=== PATIENT | female | born 1970 | race Caucasian/White ===

== ENCOUNTER 2018-12-21 11:06 | Emergency (ER) | payer SELFPAY ==
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
[2018-12-21 13:19] LABS: BLOOD UREA NITROGEN,BUN 15 mg/dL (7.0-18.0); CARBON DIOXIDE,CO2 23.7 mmol/L (21.0-32.0); CHLORIDE,CL 108 mmol/L (98-107); GLUCOSE RANDOM 97 mg/dL (74-106); SODIUM,NA 143 mmol/L (136-145)
== END 2018-12-21 13:25 | disposition home or self-care (01) ==
LOC: MW.ED 11:06
DX: Z13.89 Encounter for screening for other disorder (principal); Z20.2 Contact with and (suspected) exposure to infections with a predominantly sexual mode of transmission; F17.210 Nicotine dependence, cigarettes, uncomplicated
CPT/HCPCS: 36415; 80053; 81003; 85025; 87491; 87591; 99283

== ENCOUNTER 2019-01-11 12:52 | Emergency (ER) | payer SELFPAY ==
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
== END 2019-01-11 13:49 | disposition home or self-care (01) ==
LOC: MW.ED 12:52
DX: Z76.0 Encounter for issue of repeat prescription (principal); F41.9 Anxiety disorder, unspecified; Z79.899 Other long term (current) drug therapy
CPT/HCPCS: 99281; 99282

== ENCOUNTER 2019-01-26 17:53 | Emergency (ER) | payer SELFPAY ==
--- NOTE | 2019-01-26 18:35 | EDM.PDOC ---
ED HPI GENERAL MEDICAL PROBLEM - General Chief Complaint: Medication Administration Stated Complaint: OUT OF MEDS Time Seen by Provider: 01/26/19 18:35 Source of Information: Reports: Patient - History of Present Illness INITIAL COMMENTS - FREE TEXT/NARRATIVE: HISTORY AND PHYSICAL: History of present illness: [Presents for refill of her chronic medications gabapentin 800 mg 3 times daily no fever nausea vomiting chills sweats no chest pain shortness breath headache dizziness palpitation no bowel or urine symptoms] Review of systems: As per history of present illness and below otherwise all systems reviewed and negative. Past medical history: As per history of present illness and as reviewed below otherwise noncontributory. Surgical history: As per history of present illness and as reviewed below otherwise noncontributory. Social history: No reported history of drug or alcohol abuse. Family history: As per history of present illness and as reviewed below otherwise noncontributory. Physical exam: HEENT: Atraumatic, normocephalic, pupils reactive, negative for conjunctival pallor or scleral icterus, mucous membranes moist, throat clear, neck supple, nontender, trachea midline. Lungs: Clear to auscultation, breath sounds equal bilaterally, chest nontender. Heart: S1S2, regular, negative for clicks, rubs, or JVD. Abdomen: Soft, nondistended, nontender. Negative for masses or hepatosplenomegaly. Negative for costovertebral tenderness. Pelvis: Stable nontender. Genitourinary: Deferred. Rectal: Deferred. Extremities: Atraumatic, negative for cords or calf pain. Neurovascular unremarkable. Neuro: Awake, alert, oriented. Cranial nerves II through XII unremarkable. Cerebellum unremarkable. Motor and sensory unremarkable throughout. Exam nonfocal. Diagnostics: [] Therapeutics: [Gabapentin 800 mg #30] Impression: medication refill Medical screening ] Definitive disposition and diagnosis as appropriate pending reevaluation and review of above. - Related Data Allergies Allergy/AdvReac Type Severity Reaction Status Date / Time No Known Allergies Allergy Verified 01/26/19 18:23 Home Meds: Home Meds Gabapentin [Neurontin] 800 mg PO TID 12/21/18 [History] Past Medical History Genitourinary History: Reports: None [employer] History: Reports: Psychiatric History: Reports: Anxiety, PTSD - Infectious Disease History Infectious Disease History: Reports: None - Past Surgical History Female Surgical History: Reports: Section Social & Family History - Family History Family Medical History: Noncontributory - Tobacco Use Smoking Status *Q: Current Every Day Smoker Years of Tobacco use: 13 Packs/Tins Daily: 0.2 - Caffeine Use Caffeine Use: Reports: Coffee - Recreational Drug Use Recreational Drug Use: No ED ROS GENERAL - Review of Systems Review Of Systems: See Below ED EXAM, GENERAL - Physical Exam Exam: See Below Course - Vital Signs Last Recorded V/S: Last Vital Signs Temp 97.3 F 01/26/19 18:29 Pulse 78 01/26/19 18:29 Resp 17 01/26/19 18:29 BP 141/90 H 01/26/19 18:29 Pulse Ox 97 01/26/19 18:29 Departure - Departure Time of Disposition: 18:36 Disposition: Home, Self-Care 01 Condition: Good Clinical Impression: Medication refill - Discharge Information Referrals: PCP,Not In Area [Primary Care Provider] - Forms: ED Department Discharge Additional Instructions: The following information is given to patients seen in the emergency department who are being discharged to home. This information is to outline your options for follow-up care. We provide all patients seen in our emergency department with a follow-up referral. The need for follow-up, as well as the timing and circumstances, are variable depending upon the specifics of your emergency department visit. If you don't have a primary care physician on staff, we will provide you with a referral. We always advise you to contact your personal physician following an emergency department visit to inform them of the circumstance of the visit and for follow-up with them and/or the need for any referrals to a consulting specialist. The emergency department will also refer you to a specialist when appropriate. This referral assures that you have the opportunity for follow-up care with a specialist. All of these measure are taken in an effort to provide you with optimal care, which includes your follow-up. Under all circumstances we always encourage you to contact your private physician who remains a resource for coordinating your care. When calling for follow-up care, please make the office aware that this follow-up is from your recent emergency room visit. If for any reason you are refused follow-up, please contact the [facility] emergency department at and asked to speak to the emergency department charge nurse. Sepsis Event Note - Evaluation Sepsis Screening Result: No Definite Risk - Focused Exam Vital Signs: Vital Signs Temp Pulse Resp BP Pulse Ox 01/26/19 18:29 97.3 F 78 17 141/90 H 97 Date Exam was Performed: 01/26/19 Time Exam was Performed: 18:35
== END 2019-01-26 18:46 | disposition home or self-care (01) ==
LOC: MW.ED 17:53
DX: Z76.0 Encounter for issue of repeat prescription (principal); F17.210 Nicotine dependence, cigarettes, uncomplicated
CPT/HCPCS: 99281

== ENCOUNTER 2019-03-29 17:57 | Emergency (ER) | payer MEDICAID ==
--- NOTE | 2019-03-29 18:24 | EDM.PDOC ---
ED HPI GENERAL MEDICAL PROBLEM - General Chief Complaint: Respiratory Problem Stated Complaint: FLU SYMPTOMS/BODY ACHE Time Seen by Provider: 03/29/19 18:05 Source of Information: Reports: Patient History Limitations: Reports: No Limitations - History of Present Illness INITIAL COMMENTS - FREE TEXT/NARRATIVE: HISTORY AND PHYSICAL: History of present illness: Patient is a 48-year-old female who presents to the ED today with concern of generalized body aches, nasal congestion/runny nose, cough, and sore throat over the past 4 days. Patient states she is at the [facility] and many of the other women there have had diagnosis of influenza. Patient states that she feels her symptoms are typical of those around her at the [facility]. Patient states she does smoke cigarettes but denies any health history. Patient states she has not been able to smoke due to the onset of symptoms and worsening of cough. She states she is currently on her menstrual cycle. Patient denies fever, chills, chest pain, shortness of breath. Denies headache, neck stiff ness, change in vision, syncope, or near syncope. Denies nausea, vomiting, abdominal pain, diarrhea, constipation, or dysuria. Has not noted any blood in urine or stool. Patient has been eating and drinking appropriately. Review of systems: As per history of present illness and below otherwise all systems reviewed and negative. Past medical history: As per history of present illness and as reviewed below otherwise noncontributory. Surgical history: As per history of present illness and as reviewed below otherwise noncontributory. Social history: See social history for further information Family history: As per history of present illness and as reviewed below otherwise noncontributory. Physical exam: General: Patient is alert, oriented, and in no acute distress. Patient sitting comfortably on exam table. HEENT: Atraumatic, normocephalic, pupils equal and reactive bilaterally, negative for conjunctival pallor or scleral icterus, mucous membranes moist, TMs normal bilaterally, throat clear, neck supple, nontender, trachea midline. No drooling or trismus noted. No meningeal signs. No hot potato voice noted. Lungs: Clear to auscultation, breath sounds equal bilaterally, chest nontender. Heart: S1S2, regular rate and rhythm without overt murmur Abdomen: Soft, nondistended, nontender. Negative for masses or hepatosplenomegaly. Negative for costovertebral tenderness. Pelvis: Stable nontender. Genitourinary: Deferred. Rectal: Deferred. Skin: Intact, warm, dry. No lesions or rashes noted. Extremities: Atraumatic, negative for cords or calf pain. Neurovascular unremarkable. Neuro: Awake, alert, oriented. Cranial nerves II through XII unremarkable. Cerebellum unremarkable. Motor and sensory unremarkable throughout. Exam nonfocal. Notes: Upon arrival to the ED, patient was mildly anxious appearing but this did resolve quickly after initiation of diagnostics without therapeutics. Currently menstruating. Patient is out of the window of treatment with Tamiflu. Discussed importance for follow-up with a primary care provider and the need to have lab work/LFTs repeated and further evaluated. Voices understanding and is agreeable to plan of care. Denies any further questions or concerns at this time. Diagnostics: Influenza, Strep, CBC, CMP, UA, EKG, CXR, serum hcg, lactate, UDS Therapeutics: Toradol Prescription: Azithromycin, Proair inhaler Impression: Influenza A Lung infiltrate Transaminitis Plan: 1. Take standard infectious contact precautions as discussed. Take medication as prescribed. 2. Supportive care measures such as Tylenol and/or ibuprofen as directed for pain and fever management. Encourage small frequent sips of fluids to prevent dehydration. 3. Follow-up with your primary care provider as discussed and need to have liver function tests further evaluated. Return to the ED as needed and as discussed. Definitive disposition and diagnosis as appropriate pending reevaluation and review of above. 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 ED EXAM, GENERAL - Physical Exam Exam: See Below (see dictation) Course - Vital Signs Last Recorded V/S: Last Vital Signs Temp 97.8 F 03/29/19 18:09 Pulse 95 03/29/19 19:00 Resp 16 03/29/19 19:00 BP 132/80 03/29/19 18:09 Pulse Ox 95 03/29/19 19:00 - Orders/Labs/Meds Orders: Active Orders 24 hr Category Date Time Status EKG Documentation Completion [RC] STAT Care 03/29/19 18:20 Active CULTURE STREP A CONFIRMATION [RM] Stat Lab 03/29/19 18:13 Results DRUG SCREEN, URINE [URCHEM] Stat Lab 03/29/19 20:00 Ordered STREP SCRN A RAPID W CULT CONF [RM] Stat Lab 03/29/19 18:13 Results Labs: Laboratory Tests 03/29/19 03/29/19 03/29/19 Range/Units 18:41 18:41 18:41 WBC 3.93 L (4.0-11.0) K/uL RBC 4.30 (4.30-5.90) M/uL Hgb 12.6 (12.0-16.0) g/dL Hct 38.3 (36.0-46.0) % MCV 89.1 (80.0-98.0) fL MCH 29.3 (27.0-32.0) pg MCHC 32.9 (31.0-37.0) g/dL RDW Std Deviation 46.1 (28.0-62.0) fl RDW Coeff of Anderson 14 (11.0-15.0) % Plt Count 232 (150-400) K/uL MPV 10.10 (7.40-12.00) fL Neut % (Auto) 69.2 (48.0-80.0) % Lymph % (Auto) 13.5 L (16.0-40.0) % [place] % (Auto) 16.0 H (0.0-15.0) % Eos % (Auto) 1.0 (0.0-7.0) % Baso % (Auto) 0.3 (0.0-1.5) % Neut # (Auto) 2.7 (1.4-5.7) K/uL Lymph # (Auto) 0.5 L (0.6-2.4) K/uL [place] # (Auto) 0.6 (0.0-0.8) K/uL Eos # (Auto) 0.0 (0.0-0.7) K/uL Baso # (Auto) 0.0 (0.0-0.1) K/uL Nucleated RBC % 0.0 /100WBC Nucleated RBCs # 0 K/uL Lactate (0.20-2.00) mmol/L Sodium 137 (136-145) mmol/L Potassium 3.6 (3.5-5.1) mmol/L Chloride 104 (98-107) mmol/L Carbon Dioxide 22.4 (21.0-32.0) mmol/L BUN 12 (7.0-18.0) mg/dL Creatinine 0.7 (0.6-1.0) mg/dL Est Cr Clr Drug Dosing 71.36 mL/min Estimated GFR (MDRD) > 60.0 ml/min Glucose 128 H (74-106) mg/dL Calcium 8.1 L (8.5-10.1) mg/dL Total Bilirubin 0.3 (0.2-1.0) mg/dL AST 50 H (15-37) IU/L ALT 111 H (14-63) IU/L Alkaline Phosphatase 86 (46-116) U/L Total Protein 7.0 (6.4-8.2) g/dL Albumin 3.5 (3.4-5.0) g/dL Globulin 3.5 (2.6-4.0) g/dL Albumin/Globulin Ratio 1.0 (0.9-1.6) HCG, Qual NEGATIVE (NEG) Urine Color Urine Appearance Urine pH (5.0-8.0) Ur Specific [place] (1.001-1.035) Urine Protein (NEGATIVE) mg/dL Urine Glucose (UA) (NEGATIVE) mg/dL Urine Ketones (NEGATIVE) mg/dL Urine Occult Blood (NEGATIVE) Urine Nitrite (NEGATIVE) Urine Bilirubin (NEGATIVE) Urine Urobilinogen (<2.0) EU/dL Ur Leukocyte Esterase (NEGATIVE) Urine RBC (0-2/HPF) Urine WBC (0-5/HPF) Ur Epithelial Cells (NONE-FEW) Urine Bacteria (NEGATIVE) Urine Mucus (NONE-MOD) 03/29/19 03/29/19 Range/Units 18:45 20:04 WBC (4.0-11.0) K/uL RBC (4.30-5.90) M/uL Hgb (12.0-16.0) g/dL Hct (36.0-46.0) % MCV (80.0-98.0) fL MCH (27.0-32.0) pg MCHC (31.0-37.0) g/dL RDW Std Deviation (28.0-62.0) fl RDW Coeff of Anderson (11.0-15.0) % Plt Count (150-400) K/uL MPV (7.40-12.00) fL Neut % (Auto) (48.0-80.0) % Lymph % (Auto) (16.0-40.0) % [place] % (Auto) (0.0-15.0) % Eos % (Auto) (0.0-7.0) % Baso % (Auto) (0.0-1.5) % Neut # (Auto) (1.4-5.7) K/uL Lymph # (Auto) (0.6-2.4) K/uL [place] # (Auto) (0.0-0.8) K/uL Eos # (Auto) (0.0-0.7) K/uL Baso # (Auto) (0.0-0.1) K/uL Nucleated RBC % /100WBC Nucleated RBCs # K/uL Lactate 0.7 (0.20-2.00) mmol/L Sodium (136-145) mmol/L Potassium (3.5-5.1) mmol/L Chloride (98-107) mmol/L Carbon Dioxide (21.0-32.0) mmol/L BUN (7.0-18.0) mg/dL Creatinine (0.6-1.0) mg/dL Est Cr Clr Drug Dosing mL/min Estimated GFR (MDRD) ml/min Glucose (74-106) mg/dL Calcium (8.5-10.1) mg/dL Total Bilirubin (0.2-1.0) mg/dL AST (15-37) IU/L ALT (14-63) IU/L Alkaline Phosphatase (46-116) U/L Total Protein (6.4-8.2) g/dL Albumin (3.4-5.0) g/dL Globulin (2.6-4.0) g/dL Albumin/Globulin Ratio (0.9-1.6) HCG, Qual (NEG) Urine Color YELLOW Urine Appearance HAZY Urine pH 5.5 (5.0-8.0) Ur Specific [place] >= 1.030 (1.001-1.035) Urine Protein 30 H (NEGATIVE) mg/dL Urine Glucose (UA) NEGATIVE (NEGATIVE) mg/dL Urine Ketones NEGATIVE (NEGATIVE) mg/dL Urine Occult Blood MODERATE H (NEGATIVE) Urine Nitrite NEGATIVE (NEGATIVE) Urine Bilirubin NEGATIVE (NEGATIVE) Urine Urobilinogen 0.2 (<2.0) EU/dL Ur Leukocyte Esterase NEGATIVE (NEGATIVE) Urine RBC 4-8 (0-2/HPF) Urine WBC 0-3 (0-5/HPF) Ur Epithelial Cells FEW (NONE-FEW) Urine Bacteria FEW (NEGATIVE) Urine Mucus MODERATE (NONE-MOD) Meds: Medications Discontinued Medications Generic Name Dose Route Start Last Admin Trade Name Freq PRN Reason Stop Dose Admin Ketorolac Tromethamine 30 mg 03/29/19 19:28 03/29/19 19:47 Toradol IM 03/29/19 19:29 30 mg ONETIME ONE Administration Departure - Departure Time of Disposition: 20:24 Disposition: Home, Self-Care 01 Clinical Impression: Influenza A, Transaminitis, Lung infiltrate - Discharge Information Instructions: Influenza, Adult, [id number] Referrals: PCP,None [Primary Care Provider] - Forms: ED Department Discharge Additional Instructions: The following information is given to patients seen in the emergency department who are being discharged to home. This information is to outline your options for follow-up care. We provide all patients seen in our emergency department with a follow-up referral. The need for follow-up, as well as the timing and circumstances, are variable depending upon the specifics of your emergency department visit. If you don't have a primary care physician on staff, we will provide you with a referral. We always advise you to contact your personal physician following an emergency department visit to inform them of the circumstance of the visit and for follow-up with them and/or the need for any referrals to a consulting specialist. The emergency department will also refer you to a specialist when appropriate. This referral assures that you have the opportunity for follow-up care with a specialist. All of these measure are taken in an effort to provide you with optimal care, which includes your follow-up. Under all circumstances we always encourage you to contact your private physician who remains a resource for coordinating your care. When calling for follow-up care, please make the office aware that this follow-up is from your recent emergency room visit. If for any reason you are refused follow-up, please contact the [facility] Emergency Department at and asked to speak to the emergency department charge nurse. [facility] [address] [place] [address] [facility] [address] [place] [id number] 1. Take standard infectious contact precautions as discussed. Take medication as prescribed. 2. Supportive care measures such as Tylenol and/or ibuprofen as directed for pain and fever management. Encourage small frequent sips of fluids to prevent dehydration. 3. Follow-up with your primary care provider as discussed and need to have liver function tests further evaluated. Return to the ED as needed and as discussed. Sepsis Event Note - Evaluation Sepsis Screening Result: Possible Sepsis Risk - Focused Exam Vital Signs: Vital Signs Temp Pulse Resp BP Pulse Ox 03/29/19 19:00 95 16 95 03/29/19 18:09 97.8 F 108 H 22 H 132/80 95 Date Exam was Performed: 03/29/19 Time Exam was Performed: 20:22 - My Orders Last 24 Hours: My Active Orders 03/29/19 18:13 CULTURE STREP A CONFIRMATION [RM] Stat STREP SCRN A RAPID W CULT CONF [RM] Stat 03/29/19 18:20 EKG Documentation Completion [RC] STAT 03/29/19 20:00 DRUG SCREEN, URINE [URCHEM] Stat - Assessment/Plan Last 24 Hours: My Active Orders 03/29/19 18:13 CULTURE STREP A CONFIRMATION [RM] Stat STREP SCRN A RAPID W CULT CONF [RM] Stat 03/29/19 18:20 EKG Documentation Completion [RC] STAT 03/29/19 20:00 DRUG SCREEN, URINE [URCHEM] Stat
[2019-03-29 19:11] LABS: BLOOD UREA NITROGEN,BUN 12 mg/dL (7.0-18.0); CARBON DIOXIDE,CO2 22.4 mmol/L (21.0-32.0); CHLORIDE,CL 104 mmol/L (98-107); GLUCOSE RANDOM 128 mg/dL (74-106); POTASSIUM,K 3.6 mmol/L (3.5-5.1); SODIUM,NA 137 mmol/L (136-145)
[2019-03-29] MEDS ORDERED: Ketorolac 30 MG/ML SDV IM ONE (19:28)
--- NOTE | 2019-03-29 20:09 | CR ---
INDICATION: Four-day history of cough TECHNIQUE: Chest 2 views. COMPARISON: None FINDINGS: Cardiovascular and mediastinum: Heart size and vasculature are normal in caliber and appearance. Mediastinum is within normal limits. Lungs and pleural spaces: Patchy opacity in the right lower. No sign of pleural effusion. No pneumothorax. Bones and soft tissues: No significant findings. IMPRESSION: Patchy opacity in the right lower lobe may represent atelectasis or infection. Dictated by Germania Vinson MD @ Mar 29 2019 8:07PM Signed by Dr. Germania Vinson @ Mar 29 2019 8:07PM
== END 2019-03-29 20:40 | disposition home or self-care (01) ==
LOC: MW.ED 17:57
DX: J10.1 Influenza due to other identified influenza virus with other respiratory manifestations (principal); R91.8 Other nonspecific abnormal finding of lung field; R74.0 Nonspecific elevation of levels of transaminase and lactic acid dehydrogenase [LDH]; F17.210 Nicotine dependence, cigarettes, uncomplicated
CPT/HCPCS: 36415; 71046; 80053; 80305; 81001; 83605; 84703; 85025; 87081; 87804; 87880; 93005; 96372; 99284; J1885

== ENCOUNTER 2019-04-21 00:36 | Emergency (ER) | payer MEDICAID ==
[2019-04-21] MEDS ORDERED: Sodium Chloride 0.9% 10 ML Syringe FLUSH PRN (00:43)
[2019-04-21] MEDS ORDERED: Ketorolac 30 MG/ML SDV IVPUSH ONE (00:43)
[2019-04-21] MEDS ORDERED: Ondansetron 4 MG/2 ML SDV IVPUSH ONE (00:43)
[2019-04-21] MEDS ORDERED: Sodium Chloride 0.9% 2.5 ML Syringe FLUSH PRN (00:43)
[2019-04-21] MEDS ORDERED: Dicyclomine 10 MG Cap PO ONE (00:44)
--- NOTE | 2019-04-21 00:48 | EDM.PDOC ---
ED HPI GENERAL MEDICAL PROBLEM - General Chief Complaint: Abdominal Pain Stated Complaint: ABDOMINAL PAIN Time Seen by Provider: 04/21/19 00:45 Source of Information: Reports: Patient - History of Present Illness INITIAL COMMENTS - FREE TEXT/NARRATIVE: 48-year-old female who presents to the ER secondary to abdominal pain. She states that this started about an hour ago, and it wraps around her entire upper abdomen and back like a band. She also has had some nausea and vomiting. No fevers or chills. No difficulty breathing, no other acute complaints. The patient is not sure if she has had this before. She states that there was one time where she was throwing up a lot and she was given some medications but she does not remember what it was for. She denies any alcohol use, she states that she had some [place] food approximately 12 hours ago but her last meal was just some green beans. Abdomen Pain Score (Numeric/FACES): 9 - Related Data Allergies Allergy/AdvReac Type Severity Reaction Status Date / Time No Known Allergies Allergy Verified 04/21/19 00:39 Home Meds: Home Meds Gabapentin [Neurontin] 800 mg PO TID 12/21/18 [History] Ondansetron [Zofran ODT] 4 mg PO Q4H PRN 5 Days #20 tab.dis 04/21/19 [Rx] Sucralfate [Carafate] 1 gm PO Q6HR 10 Days #40 tablet 04/21/19 [Rx] Past Medical History Genitourinary History: Reports: None [employer] History: Reports: Psychiatric History: Reports: Anxiety, PTSD - Infectious Disease History Infectious Disease History: Reports: None - Past Surgical History Female Surgical History: Reports: Section Social & Family History - Family History Family Medical History: Noncontributory - Caffeine Use Caffeine Use: Reports: Coffee ED ROS GENERAL - Review of Systems Review Of Systems: See Below (Positive for abdominal pain, nausea and vomiting, negative for fevers, negative for diarrhea, all other Positives and pertinent negatives as per HPI. All other pertinent systems were reviewed and are negative ) ED EXAM, GI/ABD - Physical Exam Exam: See Below Text/Narrative:: Constitutional: Nontoxic, looks mildly uncomfortable HEENT.: Normocephalic, Atraumatic, PERRL, EOMI, External ears are atraumatic, nares are patent without epistaxis Neck: Normal range of motion, Trachea Midline, No stridor Respiratory.: No respiratory distress, No tachypnea, Lungs Clear to Auscultation bilaterally without wheezes, rales, or rhonchi Cardiovascular.: Regular rate and Rhythm without murmurs, rubs, or gallops, good peripheral perfusion GI: Obese, abdomen soft and nondistended, very reproducible right upper quadrant tenderness, no rebound Genital Urinary: Deferred Musculoskeletal: Good range of motion. All 4 extremities present and atraumatic , no edema Back: Full Range of Motion Skin: Warm, Dry, Color is ethnicity appropriate, No acute rash. Lymphatic: No lymphadenopathy noted Neurological: Alert, Awake and oriented x 3, No focal deficits noted appreciate , GCS 15 Psych: Affect, Judgement, mood normal Course - Vital Signs Text/Narrative:: Differential diagnosis includes appendicitis, ascending cholangitis, choledocholithiasis, pancreatitis, perforated ulcer, diverticulitis, volvulus, adult intussusception, others Lab work all returned and is unremarkable and as documented the patient has a nonsurgical abdomen. The patient can be heard out in the hallway loudly laughing with to have her friends and joking around. I went into the room and as she was laughing she stated that none of the medications I gave her helped with her pain. She has not vomited once here, and given the entire clinical scenario I do not think that the patient requires any imaging at this time, nor do I feel she needs opioid therapy. The patient states that this feels similar to previous episodes of gastritis that she has had in the past so she will be given a dose of Carafate in the ER and a prescription for Carafate and Zofran and is stable for discharge. Last Recorded V/S: Last Vital Signs Temp 36.6 C 04/21/19 03:40 Pulse 85 04/21/19 03:40 Resp 16 04/21/19 03:40 BP 135/83 04/21/19 03:40 Pulse Ox 96 04/21/19 03:40 - Orders/Labs/Meds Orders: Active Orders 24 hr Category Date Time Status Saline Lock Insert [OM.PC] Stat Oth 04/21/19 00:43 Ordered Labs: Laboratory Tests 04/21/19 04/21/19 04/21/19 Range/Units 01:06 01:06 01:06 WBC 11.05 H (4.0-11.0) K/uL RBC 4.66 (4.30-5.90) M/uL Hgb 13.3 (12.0-16.0) g/dL Hct 41.8 (36.0-46.0) % MCV 89.7 (80.0-98.0) fL MCH 28.5 (27.0-32.0) pg MCHC 31.8 (31.0-37.0) g/dL RDW Std Deviation 45.0 (28.0-62.0) fl RDW Coeff of Anderson 14 (11.0-15.0) % Plt Count 398 (150-400) K/uL MPV 10.10 (7.40-12.00) fL Neut % (Auto) 62.9 (48.0-80.0) % Lymph % (Auto) 26.7 (16.0-40.0) % [place] % (Auto) 7.4 (0.0-15.0) % Eos % (Auto) 2.6 (0.0-7.0) % Baso % (Auto) 0.4 (0.0-1.5) % Neut # (Auto) 7.0 H (1.4-5.7) K/uL Lymph # (Auto) 3.0 H (0.6-2.4) K/uL [place] # (Auto) 0.8 (0.0-0.8) K/uL Eos # (Auto) 0.3 (0.0-0.7) K/uL Baso # (Auto) 0.0 (0.0-0.1) K/uL Nucleated RBC % 0.0 /100WBC Nucleated RBCs # 0 K/uL Sodium 142 (136-145) mmol/L Potassium 3.7 (3.5-5.1) mmol/L Chloride 103 (98-107) mmol/L Carbon Dioxide 30.6 (21.0-32.0) mmol/L BUN 14 (7.0-18.0) mg/dL Creatinine 0.7 (0.6-1.0) mg/dL Est Cr Clr Drug Dosing TNP Estimated GFR (MDRD) > 60.0 ml/min Glucose 111 H (74-106) mg/dL Calcium 9.2 (8.5-10.1) mg/dL Total Bilirubin 0.3 (0.2-1.0) mg/dL AST 30 (15-37) IU/L ALT 48 (14-63) IU/L Alkaline Phosphatase 93 (46-116) U/L Total Protein 7.2 (6.4-8.2) g/dL Albumin 3.9 (3.4-5.0) g/dL Globulin 3.3 (2.6-4.0) g/dL Albumin/Globulin Ratio 1.2 (0.9-1.6) Lipase 250 (73-393) U/L HCG, Qual NEGATIVE (NEG) Ethyl Alcohol mg/dL 04/21/19 Range/Units 01:06 WBC (4.0-11.0) K/uL RBC (4.30-5.90) M/uL Hgb (12.0-16.0) g/dL Hct (36.0-46.0) % MCV (80.0-98.0) fL MCH (27.0-32.0) pg MCHC (31.0-37.0) g/dL RDW Std Deviation (28.0-62.0) fl RDW Coeff of [place] (11.0-15.0) % Plt Count (150-400) K/uL MPV (7.40-12.00) fL Neut % (Auto) (48.0-80.0) % Lymph % (Auto) (16.0-40.0) % [place] % (Auto) (0.0-15.0) % Eos % (Auto) (0.0-7.0) % Baso % (Auto) (0.0-1.5) % Neut # (Auto) (1.4-5.7) K/uL Lymph # (Auto) (0.6-2.4) K/uL [place] # (Auto) (0.0-0.8) K/uL Eos # (Auto) (0.0-0.7) K/uL Baso # (Auto) (0.0-0.1) K/uL Nucleated RBC % /100WBC Nucleated RBCs # K/uL Sodium (136-145) mmol/L Potassium (3.5-5.1) mmol/L Chloride (98-107) mmol/L Carbon Dioxide (21.0-32.0) mmol/L BUN (7.0-18.0) mg/dL Creatinine (0.6-1.0) mg/dL Est Cr Clr Drug Dosing Estimated GFR (MDRD) ml/min Glucose (74-106) mg/dL Calcium (8.5-10.1) mg/dL Total Bilirubin (0.2-1.0) mg/dL AST (15-37) IU/L ALT (14-63) IU/L Alkaline Phosphatase (46-116) U/L Total Protein (6.4-8.2) g/dL Albumin (3.4-5.0) g/dL Globulin (2.6-4.0) g/dL Albumin/Globulin Ratio (0.9-1.6) Lipase (73-393) U/L HCG, Qual (NEG) Ethyl Alcohol <3 mg/dL Meds: Medications Discontinued Medications Generic Name Dose Route Start Last Admin Trade Name Freq PRN Reason Stop Dose Admin Dicyclomine HCl 20 mg 04/21/19 00:44 04/21/19 01:12 Bentyl PO 04/21/19 00:45 20 mg ONETIME ONE Administration Ketorolac Tromethamine 30 mg 04/21/19 00:43 04/21/19 01:14 Toradol IVPUSH 04/21/19 00:44 30 mg ONETIME ONE Administration Ondansetron HCl 4 mg 04/21/19 00:43 04/21/19 01:12 Zofran IVPUSH 04/21/19 00:44 4 mg ONETIME ONE Administration Sodium Chloride 10 ml 04/21/19 00:43 Saline Flush FLUSH ASDIRECTED PRN Keep Vein Open Sodium Chloride 2.5 ml 04/21/19 00:43 Saline Flush FLUSH ASDIRECTED PRN Keep Vein Open Sucralfate 1 gm 04/21/19 03:18 04/21/19 03:43 Carafate PO 04/21/19 03:19 1 gm ONETIME ONE Administration Departure - Departure Time of Disposition: :20 Disposition: Home, Self-Care 01 Condition: Good Clinical Impression: Abdominal pain - Discharge Information *PRESCRIPTION DRUG MONITORING PROGRAM REVIEWED*: Not Applicable *COPY OF PRESCRIPTION DRUG MONITORING REPORT IN PATIENT LADONNA: Not Applicable Prescriptions: Sucralfate [Carafate] 1 gm PO Q6HR 10 Days #40 tablet Ondansetron [Zofran ODT] 4 mg PO Q4H PRN 5 Days #20 tab.dis PRN Reason: Nausea/Vomiting Instructions: Abdominal Pain, Adult, [id number] Referrals: PCP,None [Primary Care Provider] - Forms: ED Department Discharge Additional Instructions: The following information is given to patients seen in the emergency department who are being discharged to home. This information is to outline your options for follow-up care. We provide all patients seen in our emergency department with a follow-up referral. The need for follow-up, as well as the timing and circumstances, are variable depending upon the specifics of your emergency department visit. If you don't have a primary care physician on staff, we will provide you with a referral. We always advise you to contact your personal physician following an emergency department visit to inform them of the circumstance of the visit and for follow-up with them and/or the need for any referrals to a consulting specialist. The emergency department will also refer you to a specialist when appropriate. This referral assures that you have the opportunity for follow-up care with a specialist. All of these measure are taken in an effort to provide you with optimal care, which includes your follow-up. Under all circumstances we always encourage you to contact your private physician who remains a resource for coordinating your care. When calling for follow-up care, please make the office aware that this follow-up is from your recent emergency room visit. If for any reason you are refused follow-up, please contact the [facility] Emergency Department at and asked to speak to the emergency department charge nurse. [facility] [address] [place] [address] [id number] [address] [address] Sepsis Event Note - Evaluation Sepsis Screening Result: No Definite Risk - Focused Exam Vital Signs: Vital Signs Temp Pulse Resp BP Pulse Ox 04/21/19 03:40 36.6 C 85 16 135/83 96 04/21/19 00:39 35.8 C L 94 18 146/90 H 98 Date Exam was Performed: 04/21/19 Time Exam was Performed: 04:26 - My Orders Last 24 Hours: My Active Orders 04/21/19 00:43 Saline Lock Insert [OM.PC] Stat - Assessment/Plan Last 24 Hours: My Active Orders 04/21/19 00:43 Saline Lock Insert [OM.PC] Stat
[2019-04-21 01:34] LABS: BLOOD UREA NITROGEN,BUN 14 mg/dL (7.0-18.0); CARBON DIOXIDE,CO2 30.6 mmol/L (21.0-32.0); CHLORIDE,CL 103 mmol/L (98-107); GLUCOSE RANDOM 111 mg/dL (74-106); LIPASE 250 U/L (73-393); POTASSIUM,K 3.7 mmol/L (3.5-5.1); SODIUM,NA 142 mmol/L (136-145)
[2019-04-21] MEDS ORDERED: Sucralfate 1 GM Tab PO ONE (03:18)
== END 2019-04-21 03:50 | disposition home or self-care (01) ==
LOC: MW.ED 00:36
DX: R10.10 Upper abdominal pain, unspecified (principal); R11.2 Nausea with vomiting, unspecified; F41.9 Anxiety disorder, unspecified; Z79.899 Other long term (current) drug therapy
CPT/HCPCS: 36415; 80053; 80307; 83690; 84703; 85025; 96374; 96375; 99284; A9270; J1885; J2405

== ENCOUNTER 2019-07-24 18:27 | Emergency (ER) | payer MEDICAID ==
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
[2019-07-24] MEDS ORDERED: LORazepam 2 MG/ML SDV IVPUSH ONE (18:35)
[2019-07-24] MEDS ORDERED: Sodium Chloride 0.9% 1,000 ML IV ONE (18:35)
[2019-07-24 20:03] LABS: BLOOD UREA NITROGEN,BUN 14 mg/dL (7.0-18.0); CARBON DIOXIDE,CO2 27.8 mmol/L (21.0-32.0); CHLORIDE,CL 102 mmol/L (98-107); GLUCOSE RANDOM 136 mg/dL (74-106); POTASSIUM,K 3.9 mmol/L (3.5-5.1); SODIUM,NA 139 mmol/L (136-145)
== END 2019-07-24 20:24 | disposition home or self-care (01) ==
LOC: MW.ED 18:27
DX: R11.2 Nausea with vomiting, unspecified (principal); R19.7 Diarrhea, unspecified; T40.4X5A Adverse effect of other synthetic narcotics, initial encounter
CPT/HCPCS: 36415; 80048; 85025; 96361; 96374; 99284; J2060; J7030; 99283

== ENCOUNTER 2019-07-25 19:42 | Emergency (ER) | payer MEDICAID ==
[2019-07-25] MEDS ORDERED: Famotidine 20 MG Tab PO ONE (20:06)
[2019-07-25] MEDS ORDERED: diphenhydrAMINE 50 MG/ML SDV IM ONE (20:06)
[2019-07-25] MEDS ORDERED: Ondansetron 4 MG Tab.DIS PO ONE (20:06)
[2019-07-25] MEDS ORDERED: LORazepam 2 MG/ML SDV IM ONE (20:06)
[2019-07-25 20:39] LABS: BLOOD UREA NITROGEN,BUN 9 mg/dL (7.0-18.0); CARBON DIOXIDE,CO2 25.6 mmol/L (21.0-32.0); CHLORIDE,CL 103 mmol/L (98-107); GLUCOSE RANDOM 107 mg/dL (74-106); LIPASE 149 U/L (73-393); SODIUM,NA 139 mmol/L (136-145)
--- NOTE | 2019-07-25 21:14 | EDM.PDOC ---
ED HPI GENERAL MEDICAL PROBLEM - General Chief Complaint: Abdominal Pain Stated Complaint: EMS ARRIVAL Time Seen by Provider: 07/25/19 19:49 Source of Information: Reports: Patient History Limitations: Reports: No Limitations - History of Present Illness INITIAL COMMENTS - FREE TEXT/NARRATIVE: History of present illness: [Patient is 49-year-old female with a history of methamphetamine use and Suboxone use who presents with acute on chronic abdominal pain. She was seen here yesterday for similar complaint. Lab work at that time was largely unremarkable. Feels nauseated but denies vomiting. Denies diarrhea. Denies fever. No known exacerbating or alleviating symptoms at this time. She believes it might be related to the Keflex she was taking for a skin infection.] Review of systems: As per history of present illness and below otherwise all systems reviewed and negative. Past medical history: As per history of present illness and as reviewed below otherwise noncontributory. Surgical history: As per history of present illness and as reviewed below otherwise noncontributory. Social history: No reported history of drug or alcohol abuse. Family history: As per history of present illness and as reviewed below otherwise noncontributory. Physical exam: General: Awake, alert, mild distress, A&O X3. HEENT: Atraumatic, normocephalic, pupils reactive, negative for conjunctival pallor or scleral icterus, mucous membranes moist, throat clear, neck supple, nontender, trachea midline. Lungs: Clear to auscultation, breath sounds equal bilaterally, chest nontender. Heart: RRR, normal S1S2, no JVD. Abdomen: Soft, nondistended, nontender. Negative for masses or hepatosplenomegaly. Pelvis: Stable nontender. Genitourinary: Deferred. Rectal: Deferred. Extremities: Atraumatic, no edema, Neurovascular unremarkable. Neuro: Motor and sensory grossly intact throughout. Exam nonfocal. Diagnostics: [] Therapeutics: [] Impression: [] Plan: [] Definitive disposition and diagnosis as appropriate pending reevaluation and review of above. Middle Abdominal Pain Score (Numeric/FACES): 10 - Related Data Allergies Allergy/AdvReac Type Severity Reaction Status Date / Time No Known Allergies Allergy Verified 07/24/19 19:07 Home Meds: Home Meds Buprenorphine HCl/Naloxone HCl [Suboxone 4 mg-1 mg Sl Film] 07/24/19 [History] ClonazePAM [KlonoPIN] 0.5 mg PO BID PRN 07/24/19 [History] Gabapentin [Neurontin] 300 mg PO TID 07/24/19 [History] cephALEXin [Keflex] 250 mg PO Q8H 07/24/19 [History] Gabapentin [Neurontin] 07/25/19 [History] Past Medical History HEENT History: Reports: None Cardiovascular History: Reports: None Respiratory History: Reports: None Gastrointestinal History: Reports: None Genitourinary History: Reports: None 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: Musculoskeletal History: Reports: None Neurological History: Reports: None Psychiatric History: Reports: Anxiety, PTSD Endocrine/Metabolic History: Reports: None Insulin Pump Model 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 ED EXAM, GI/ABD - Physical Exam Exam: See Below (see h and p) Course - Vital Signs Text/Narrative:: Patient is a challenging IV, we are able to get some blood, but no IV established. She received IM and oral medications on reevaluation she was resting comfortably, sleeping. Repeat belly exam is benign. Her work-up yesterday was reassuring. I do believe advanced imaging or further work-up is needed at this time. No evidence for an acute surgical belly on my exam and she is currently not experiencing pain, showed significant clinical improvement throughout her emergency department stay. Return precautions provided otherwise she was well-appearing and stable at the time of discharge. Last Recorded V/S: Last Vital Signs Temp 36.6 C 07/25/19 19:56 Pulse 87 07/25/19 19:56 Resp 18 07/25/19 19:56 BP 116/67 07/25/19 19:56 Pulse Ox 93 L 07/25/19 19:56 - Orders/Labs/Meds Orders: Active Orders 24 hr Category Date Time Status CBC WITH AUTO DIFF [HEME] Stat Lab 07/25/19 20:05 Received Labs: Laboratory Tests 07/25/19 Range/Units 20:05 Sodium 139 (136-145) mmol/L Potassium 4.0 (3.5-5.1) mmol/L Chloride 103 (98-107) mmol/L Carbon Dioxide 25.6 (21.0-32.0) mmol/L BUN 9 (7.0-18.0) mg/dL Creatinine 0.6 (0.6-1.0) mg/dL Est Cr Clr Drug Dosing 82.36 mL/min Estimated GFR (MDRD) > 60.0 ml/min Glucose 107 H (74-106) mg/dL Calcium 8.4 L (8.5-10.1) mg/dL Total Bilirubin 0.2 (0.2-1.0) mg/dL AST 47 H (15-37) IU/L ALT 67 H (14-63) IU/L Alkaline Phosphatase 74 (46-116) U/L Total Protein 6.3 L (6.4-8.2) g/dL Albumin 3.4 (3.4-5.0) g/dL Globulin 2.9 (2.6-4.0) g/dL Albumin/Globulin Ratio 1.2 (0.9-1.6) Lipase 149 (73-393) U/L Meds: Medications Discontinued Medications Generic Name Dose Route Start Last Admin Trade Name Freq PRN Reason Stop Dose Admin Diphenhydramine HCl 50 mg 07/25/19 20:06 07/25/19 20:14 Benadryl IM 07/25/19 20:07 50 mg ONETIME ONE Administration Famotidine 20 mg 07/25/19 20:06 07/25/19 20:12 Pepcid PO 07/25/19 20:07 20 mg ONETIME ONE Administration Lorazepam 1 mg 07/25/19 20:06 07/25/19 20:14 Ativan IM 07/25/19 20:07 1 mg ONETIME ONE Administration Ondansetron HCl 4 mg 07/25/19 20:06 07/25/19 20:12 Zofran Odt PO 07/25/19 20:07 4 mg ONETIME ONE Administration Departure - Departure Time of Disposition: 21:14 Disposition: Home, Self-Care 01 Condition: Good Clinical Impression: Abdominal pain - Discharge Information Instructions: Abdominal Pain, Adult, [id number] Referrals: PCP,None [Primary Care Provider] - Additional Instructions: Follow-up with primary care doctor. Take medications as previously prescribed. Return to the ED with any new or worsening symptoms. The following information is given to patients seen in the emergency department who are being discharged to home. This information is to outline your options for follow-up care. We provide all patients seen in our emergency department with a follow-up referral. The need for follow-up, as well as the timing and circumstances, are variable depending upon the specifics of your emergency department visit. If you don't have a primary care physician on staff, we will provide you with a referral. We always advise you to contact your personal physician following an emergency department visit to inform them of the circumstance of the visit and for follow-up with them and/or the need for any referrals to a consulting specialist. The emergency department will also refer you to a specialist when appropriate. This referral assures that you have the opportunity for follow-up care with a specialist. All of these measure are taken in an effort to provide you with optimal care, which includes your follow-up. Under all circumstances we always encourage you to contact your private physician who remains a resource for coordinating your care. When calling for follow-up care, please make the office aware that this follow-up is from your recent emergency room visit. If for any reason you are refused follow-up, please contact the [facility] Emergency Department at and asked to speak to the emergency department charge nurse. Sepsis Event Note (ED) - Evaluation Sepsis Screening Result: No Definite Risk - Focused Exam Vital Signs: Vital Signs Temp Pulse Resp BP Pulse Ox 07/25/19 19:56 36.6 C 87 18 116/67 93 L - My Orders Last 24 Hours: My Active Orders 07/25/19 20:05 CBC WITH AUTO DIFF [HEME] Stat - Assessment/Plan Last 24 Hours: My Active Orders 07/25/19 20:05 CBC WITH AUTO DIFF [HEME] Stat
== END 2019-07-25 21:25 | disposition home or self-care (01) ==
LOC: MW.ED 19:42
DX: R10.9 Unspecified abdominal pain (principal); R11.0 Nausea; F41.9 Anxiety disorder, unspecified; F43.10 Post-traumatic stress disorder, unspecified; Z79.899 Other long term (current) drug therapy
CPT/HCPCS: 36415; 80053; 83690; 96372; 99284; A9270; J1200; J2060; 99282

== ENCOUNTER 2019-08-03 05:39 | Emergency (ER) | payer MEDICAID ==
[2019-08-03] MEDS ORDERED: Ondansetron 4 MG/2 ML SDV IVPUSH ONE (05:41)
[2019-08-03] MEDS ORDERED: Sodium Chloride 0.9% 10 ML Syringe FLUSH PRN (05:41)
[2019-08-03] MEDS ORDERED: Sodium Chloride 0.9% 1,000 ML IV ONE (05:41)
[2019-08-03] MEDS ORDERED: Sodium Chloride 0.9% 2.5 ML Syringe FLUSH PRN ×2 (05:41)
--- NOTE | 2019-08-03 05:48 | EDM.PDOC ---
ED HPI GENERAL MEDICAL PROBLEM - General Chief Complaint: Headache Stated Complaint: ABDOMNINAL PAIN Time Seen by Provider: 08/03/19 05:41 Source of Information: Reports: Patient, EMS History Limitations: Reports: No Limitations - History of Present Illness INITIAL COMMENTS - FREE TEXT/NARRATIVE: 49-year-old female presents with headache. She woke up yesterday from a nap complaining of gradual onset progressive worsening frontal throbbing headache that radiated to her occiput, associated with photophobia and phonophobia, nausea, myalgia, malaise. She denies fever, neck pain or neck stiffness or abdominal pain, CP, SOB, cough. She went to bed last night but woke up at 0330 this morning vomiting. She has a history of meth use, last use being more than a year ago. ROS: A 10-point review of systems, other than pertinent positives and negatives as stated per HPI, is otherwise negative PHYSICAL EXAM General: AOx4, GCS = 15, No distress HEENT: dry mucous membrane Neck: supple, no meningismus, no Kernig or Brudzinski Cardiac: S1S2 RRR Respiratory: CTAB, no crackles or rales, no wheezing Abdomen: Soft, nontender, no rebound or guarding, nondistended, no pulsatile mass. Back: nontender Musculoskeletal: NVI distally, no deformity Neuro: No focal deficits, CN 2 - 12 WNL. MEDICAL DECISION MAKING: I reviewed the patients past medical records, lab and radiographic findings. I discussed the case with family members. My differential diagnosis included: Migraine headache, tension headache, electrolyte abnormality Headache Pain Score (Numeric/FACES): 8 - Related Data Allergies Allergy/AdvReac Type Severity Reaction Status Date / Time No Known Allergies Allergy Verified 08/03/19 06:09 Home Meds: Home Meds ClonazePAM [KlonoPIN] 0.5 mg PO BID PRN 07/24/19 [History] Gabapentin [Neurontin] 300 mg PO TID 07/24/19 [History] cephALEXin [Keflex] 250 mg PO Q8H 07/24/19 [History] Desvenlafaxine [Desvenlafaxine ER] 50 mg PO DAILY 08/03/19 [History] Naproxen [Naprosyn] 500 mg PO Q12HR #10 tab 08/03/19 [Rx] Ondansetron [Zofran ODT] 4 mg PO Q6H PRN #12 tab.dis 08/03/19 [Rx] QUEtiapine Fumarate [Quetiapine Fumarate] 100 mg PO BEDTIME 08/03/19 [History] Past Medical History HEENT History: Reports: None Cardiovascular History: Reports: None Respiratory History: Reports: None Gastrointestinal History: Reports: None Genitourinary History: Reports: None 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: Musculoskeletal History: Reports: None Neurological History: Reports: None Psychiatric History: Reports: Anxiety, PTSD Endocrine/Metabolic History: Reports: None Insulin Pump Model and Scrap Preparation Supervisor: N/A Hematologic History: Reports: None Immunologic History: Reports: None Oncologic (Cancer) History: Reports: None Dermatologic History: Reports: None - Infectious Disease History Infectious Disease History: Reports: None - Past Surgical History Female Surgical History: Reports: Section Social & Family History - Family History Family Medical History: Noncontributory - Caffeine Use Caffeine Use: Reports: Coffee ED ROS GENERAL - Review of Systems Review Of Systems: See Below (see dictation) ED EXAM, GI/ABD - Physical Exam Exam: See Below (see dictation) ED ABDOMINAL/GI PROCEDURES - Additional/Other Procedure(s) Procedure(s) (Free Text): Sphenopalatine ganglion block: Indication: headache. Verbal consent was obtained. 5cc of 2% viscous lidocaine was placed into a swab and inserted into bilateral nares. This is left in place for approximately 20 minutes and patient was reassessed. Patient tolerated well with no complications observed. Course - Vital Signs Last Recorded V/S: Last Vital Signs Temp 97.0 F 08/03/19 06:07 Pulse 81 08/03/19 06:07 Resp 17 08/03/19 06:07 BP 113/77 08/03/19 06:07 Pulse Ox 96 08/03/19 06:07 - Orders/Labs/Meds Labs: Laboratory Tests 08/03/19 08/03/19 Range/Units 05:45 05:45 Urine Color YELLOW Urine Appearance SLT CLOUDY Urine pH 5.0 (5.0-8.0) Ur Specific [place] >= 1.030 (1.001-1.035) Urine Protein NEGATIVE (NEGATIVE) mg/dL Urine Glucose (UA) NEGATIVE (NEGATIVE) mg/dL Urine Ketones NEGATIVE (NEGATIVE) mg/dL Urine Occult Blood NEGATIVE (NEGATIVE) Urine Nitrite NEGATIVE (NEGATIVE) Urine Bilirubin NEGATIVE (NEGATIVE) Urine Urobilinogen 0.2 (<2.0) EU/dL Ur Leukocyte Esterase NEGATIVE (NEGATIVE) Urine HCG, Qual NEGATIVE (NEGATIVE) Meds: Medications Discontinued Medications Generic Name Dose Route Start Last Admin Trade Name Freq PRN Reason Stop Dose Admin Diphenhydramine HCl 50 mg 08/03/19 05:49 08/03/19 06:13 Benadryl IVPUSH 08/03/19 05:50 Not Given ONETIME ONE Diphenhydramine HCl 50 mg 08/03/19 06:01 08/03/19 06:05 Benadryl IM 08/03/19 06:02 50 mg ONETIME ONE Administration Sodium Chloride 1,000 mls @ 999 mls/hr 08/03/19 05:41 08/03/19 06:13 Normal Saline IV 08/03/19 06:41 Not Given BOLUS ONE Ketorolac Tromethamine 30 mg 08/03/19 05:49 08/03/19 06:13 Toradol IVPUSH 08/03/19 05:50 Not Given ONETIME ONE Ketorolac Tromethamine 60 mg 08/03/19 06:01 08/03/19 06:07 Toradol IM 08/03/19 06:02 60 mg ONETIME ONE Administration Ketorolac Tromethamine Confirm 08/03/19 06:04 08/03/19 06:13 Toradol Administered 08/03/19 06:05 Not Given Dose 30 mg .ROUTE .STK-MED ONE Lidocaine HCl 15 ml 08/03/19 06:01 08/03/19 06:08 Xylocaine 2% Viscous PO 08/03/19 06:02 15 ml ONETIME ONE Administration Lidocaine HCl Confirm 08/03/19 06:04 08/03/19 06:08 Xylocaine 2% Viscous Administered 08/03/19 06:05 Not Given Dose 15 ml .ROUTE .STK-MED ONE Metoclopramide HCl 10 mg 08/03/19 05:49 08/03/19 06:13 Reglan IVPUSH 08/03/19 05:50 Not Given ONETIME ONE Metoclopramide HCl 10 mg 08/03/19 06:01 08/03/19 06:06 Reglan IM 08/03/19 06:02 10 mg ONETIME ONE Administration Ondansetron HCl 4 mg 08/03/19 05:41 08/03/19 05:54 Zofran IVPUSH 08/03/19 05:42 Not Given ONETIME ONE Sodium Chloride 10 ml 08/03/19 05:41 Saline Flush FLUSH ASDIRECTED PRN Keep Vein Open Sodium Chloride 2.5 ml 08/03/19 05:41 Saline Flush FLUSH ASDIRECTED PRN Keep Vein Open Sodium Chloride 2.5 ml 08/03/19 05:41 Saline Flush FLUSH ASDIRECTED PRN Keep Vein Open - Re-Assessments/Exams Free Text/Narrative Re-Assessment/Exam: 08/03/19 05:52 Ordered IM Reglan, Benadryl, Toradol. 08/03/19 06:53 After treatments and a prolonged observation period in the ER, the patient improved clinically and is stable for discharge. I performed a repeat examination and the patient has not demonstrated any new abnormal findings. Patient exhibits normal vital signs and has exhibited a normal gait. I advised the patient to return to the ER for reevaluation if symptoms worsened, and to follow up with their PCP within 2-3 days. Departure - Departure Time of Disposition: 07:00 Disposition: Home, Self-Care 01 Condition: Good Clinical Impression: Migraine - Discharge Information *PRESCRIPTION DRUG MONITORING PROGRAM REVIEWED*: Not Applicable *COPY OF PRESCRIPTION DRUG MONITORING REPORT IN PATIENT LADONNA: Not Applicable Prescriptions: Naproxen [Naprosyn] 500 mg PO Q12HR #10 tab Ondansetron [Zofran ODT] 4 mg PO Q6H PRN #12 tab.dis PRN Reason: Nausea/Vomiting Instructions: Migraine Headache, [id number] Referrals: PCP,Harryobtain [Primary Care Provider] - Forms: ED Department Discharge Additional Instructions: The following information is given to patients seen in the emergency department who are being discharged to home. This information is to outline your options for follow-up care. We provide all patients seen in our emergency department with a follow-up referral. The need for follow-up, as well as the timing and circumstances, are variable depending upon the specifics of your emergency department visit. If you don't have a primary care physician on staff, we will provide you with a referral. We always advise you to contact your personal physician following an emergency department visit to inform them of the circumstance of the visit and for follow-up with them and/or the need for any referrals to a consulting specialist. The emergency department will also refer you to a specialist when appropriate. This referral assures that you have the opportunity for follow-up care with a specialist. All of these measure are taken in an effort to provide you with optimal care, which includes your follow-up. Under all circumstances we always encourage you to contact your private physician who remains a resource for coordinating your care. When calling for follow-up care, please make the office aware that this follow-up is from your recent emergency room visit. If for any reason you are refused follow-up, please contact the [facility] Emergency Department at and asked to speak to the emergency department charge nurse. If you do not have a primary care doctor, please follow up with the clinics below within 3-5 days. [facility] - Primary Care [address] [place] [id number] [facility] [address] [place] [id number] Sepsis Event Note (ED) - Focused Exam Vital Signs: Vital Signs Temp Pulse Resp BP Pulse Ox 08/03/19 06:07 97.0 F 81 17 113/77 96
[2019-08-03] MEDS ORDERED: diphenhydrAMINE 50 MG/ML SDV IVPUSH ONE (05:49)
[2019-08-03] MEDS ORDERED: Ketorolac 30 MG/ML SDV IVPUSH ONE (05:49)
[2019-08-03] MEDS ORDERED: Metoclopramide 10 MG/2 ML SDV IVPUSH ONE (05:49)
[2019-08-03] MEDS ORDERED: Metoclopramide 10 MG/2 ML SDV IM ONE (06:01)
[2019-08-03] MEDS ORDERED: Ketorolac 60 MG/2 ML SDV IM ONE (06:01)
[2019-08-03] MEDS ORDERED: Lidocaine 2% Viscous Solution 15 ML Cup PO ONE (06:01)
[2019-08-03] MEDS ORDERED: diphenhydrAMINE 50 MG/ML SDV IM ONE (06:01)
[2019-08-03] MEDS ORDERED: Lidocaine 2% Viscous Solution 15 ML Cup ONE (06:04)
[2019-08-03] MEDS ORDERED: Ketorolac 30 MG/ML SDV ONE (06:04)
== END 2019-08-03 07:15 | disposition home or self-care (01) ==
LOC: MW.ED 05:39
DX: G43.909 Migraine, unspecified, not intractable, without status migrainosus (principal); F41.9 Anxiety disorder, unspecified; Z79.899 Other long term (current) drug therapy; Z98.890 Other specified postprocedural states
CPT/HCPCS: 64505; 81003; 81025; 96372; 99282; 99284-25; A9270-GY; J1200; J1885; J2765

== ENCOUNTER 2019-08-06 11:04 | Emergency (ER) | payer MEDICAID ==
--- NOTE | 2019-08-06 11:32 | EDM.PDOC ---
ED HPI GENERAL MEDICAL PROBLEM - General Chief Complaint: Lower Extremity Injury/Pain Stated Complaint: BACK PAIN AND INJURY TO BOTH ANKLES Time Seen by Provider: 08/06/19 11:08 Source of Information: Reports: Patient History Limitations: Reports: No Limitations - History of Present Illness INITIAL COMMENTS - FREE TEXT/NARRATIVE: Presents reporting a fall yesterday. The patient states that she tripped on uneven ground. She heard 3 "cracks". Since then she has had pain in her right ankle and left foot. This morning, she noticed pain in her lower back. She has been ambulatory. No saddle anesthesia, bowel or bladder dysfunction, tingling or numbness in the lower extremities. bilateral ankles Pain Score (Numeric/FACES): 10 - Related Data Allergies Allergy/AdvReac Type Severity Reaction Status Date / Time No Known Allergies Allergy Verified 08/06/19 11:13 Home Meds: Home Meds ClonazePAM [KlonoPIN] 0.5 mg PO BID PRN 07/24/19 [History] Gabapentin [Neurontin] 800 mg PO TID 07/24/19 [History] cephALEXin [Keflex] 500 mg PO BID 07/24/19 [History] Desvenlafaxine [Desvenlafaxine ER] 50 mg PO DAILY 08/03/19 [History] Ondansetron [Zofran ODT] 4 mg PO Q6H PRN #12 tab.dis 08/03/19 [Rx] QUEtiapine Fumarate [Quetiapine Fumarate] 100 mg PO BEDTIME 08/03/19 [History] Past Medical History HEENT History: Reports: None Cardiovascular History: Reports: None Respiratory History: Reports: None Gastrointestinal History: Reports: None Genitourinary History: Reports: None DIRECTOR 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: Musculoskeletal History: Reports: None Neurological History: Reports: None Psychiatric History: Reports: Anxiety, PTSD Endocrine/Metabolic History: Reports: None Insulin Pump Model and Front Clerk: N/A Hematologic History: Reports: None Immunologic History: Reports: None Oncologic (Cancer) History: Reports: None Dermatologic History: Reports: None - Infectious Disease History Infectious Disease History: Reports: None - Past Surgical History Head Surgeries/Procedures: Reports: None Female Surgical History: Reports: Section Social & Family History - Family History Family Medical History: Noncontributory - Tobacco Use Smoking Status *Q: Current Every Day Smoker Years of Tobacco use: 20 Packs/Tins Daily: 1 - Caffeine Use Caffeine Use: Reports: None - Recreational Drug Use Recreational Drug Use: No Review of Systems - Review of Systems Review Of Systems: Comprehensive ROS is negative, except as noted in HPI. ED EXAM, GENERAL - Physical Exam Exam: See Below Exam Limited By: No Limitations General Appearance: Alert, No Apparent Distress Ears: Normal External Exam Nose: Normal Inspection Throat/Mouth: Normal Inspection Head: Atraumatic, Normocephalic Neck: Normal Inspection Respiratory/Chest: No Respiratory Distress, Lungs Clear, Normal Breath Sounds Cardiovascular: Normal Peripheral Pulses, Regular Rate, Rhythm Back Exam: Normal Inspection, Full Range of Motion, Paraspinal Tenderness (lower) Extremities: Normal Inspection Neurological: Alert, Oriented, Normal Cognition Psychiatric: Normal Affect, Normal Mood Skin Exam: Warm, Dry, Intact, Normal Color, No Rash Lymphatic: No Adenopathy Course - Vital Signs Last Recorded V/S: Last Vital Signs Temp 36.1 C 08/06/19 11:14 Pulse 105 H 08/06/19 11:14 Resp 18 08/06/19 11:14 BP 124/68 08/06/19 11:14 Pulse Ox 93 L 08/06/19 11:14 - Orders/Labs/Meds Orders: Active Orders 24 hr Category Date Time Status DME for Discharge [COMM] Stat Oth 08/06/19 12:21 Ordered Meds: Medications Discontinued Medications Generic Name Dose Route Start Last Admin Trade Name Freq PRN Reason Stop Dose Admin Ketorolac Tromethamine 60 mg 08/06/19 12:15 08/06/19 12:21 Toradol IM 08/06/19 12:16 60 mg ONETIME ONE Administration Departure - Departure Time of Disposition: 12:25 Disposition: Home, Self-Care 01 Condition: Good Clinical Impression: Ankle sprain Qualifiers: Encounter type: initial encounter Laterality: right - Discharge Information Referrals: PCP,None [Primary Care Provider] - [facility] [Outside] [facility] [Outside] Forms: ED Department Discharge Additional Instructions: 1. Wear boot right ankle. 2. Aleve 2 tabs a.m. and p.m. or ibuprofen 2-3 tabs 3 times daily as needed for pain 3. Elevate lower extremities. Cool packs 20 minutes every 3-4 hours as needed for swelling and pain 4. Follow-up in primary care. Sepsis Event Note (ED) - Evaluation Sepsis Screening Result: No Definite Risk - Focused Exam Vital Signs: Vital Signs Temp Pulse Resp BP Pulse Ox 08/06/19 11:14 36.1 C 105 H 18 124/68 93 L - My Orders Last 24 Hours: My Active Orders 08/06/19 12:21 DME for Discharge [COMM] Stat - Assessment/Plan Last 24 Hours: My Active Orders 08/06/19 12:21 DME for Discharge [COMM] Stat
[2019-08-06] MEDS ORDERED: Ketorolac 60 MG/2 ML SDV IM ONE (12:15)
--- NOTE | 2019-08-06 12:18 | CR ---
Right ankle: 3 views of the right ankle were obtained. Comparison: No previous study. Mild soft tissue swelling is noted. Ankle mortise is symmetric. No acute fracture or other bony abnormality is appreciated. Impression: 1. Soft tissue swelling. 2. No bony abnormality is identified on right ankle exam. Diagnostic code #2 This report was dictated in MDT
--- NOTE | 2019-08-06 12:20 | CR ---
Lumbar spine: AP, lateral and coned-down lateral view centered to the lumbosacral junction were obtained. Comparison: No prior lumbar spine imaging. Moderate disc space narrowing is noted at L4-L5. Other disc spaces are maintained. Vertebral body heights are maintained. Mild anterior endplate osteophytes are noted L4-L5 with minimal anterior endplate osteophytes noted at L3-L4. Pedicles are intact. Visualized transverse and spinous processes are intact. Sacroiliac joints are normal. Impression: 1. Degenerative change as noted above. Diagnostic code #2 This report was dictated in MDT
--- NOTE | 2019-08-06 12:20 | CR ---
Left foot: 2 views of the left foot were obtained. Comparison: No prior left foot study. No fracture or other bony abnormality is appreciated. Impression: 1. No abnormality is identified on 2 view left foot exam. Diagnostic code #1 This report was dictated in MDT
== END 2019-08-06 12:43 | disposition home or self-care (01) ==
LOC: MW.ED 11:04
DX: S93.401A Sprain of unspecified ligament of right ankle, initial encounter (principal); F41.9 Anxiety disorder, unspecified; F17.210 Nicotine dependence, cigarettes, uncomplicated; Z79.899 Other long term (current) drug therapy; W01.0XXA Fall on same level from slipping, tripping and stumbling without subsequent striking against object, initial encounter
CPT/HCPCS: 72100; 73610; 73620; 96372; 99283; J1885

== ENCOUNTER 2019-08-31 13:33 | Emergency (ER) | payer MEDICAID ==
--- NOTE | 2019-08-31 15:58 | EDM.PDOC ---
ED HPI GENERAL MEDICAL PROBLEM - General Chief Complaint: ENT Problem Stated Complaint: EAR ACHE Time Seen by Provider: 08/31/19 15:10 - History of Present Illness INITIAL COMMENTS - FREE TEXT/NARRATIVE: History of present illness: 49-year-old female presenting with right-sided earache for the last 2 to 3 days. No fevers. Also has some runny nose and sore throat. She reports that she feels like she has "sores" in her nose. No other associated symptoms. Review of systems: As per history of present illness and below otherwise all systems reviewed and negative. Past medical history: As per history of present illness and as reviewed below otherwise noncontributory. Surgical history: As per history of present illness and as reviewed below otherwise noncontributory. Social history: No reported history of drug or alcohol abuse. Smoker Family history: As per history of present illness and as reviewed below otherwise noncontributory. Physical exam: GEN: no acute distress, well appearing HEENT: Atraumatic, normocephalic, mucous membranes moist, no intraoral lesions, no tonsillar enlargement or exudate. No signs of zoster or vesicular rash in the nose or ears. Left TM and otic canal unremarkable. Right TM unremarkable. Right otic canal is erythematous and narrowed, consistent with otitis externa. Neck: supple, nontender, trachea midline. No lymphadenopathy. Lungs: No respiratory distress. Heart: RRR Extremities: Atraumatic. Neurovascularly intact. Neuro: Awake, alert, oriented. Neuro Exam nonfocal. Skin: warm, dry, no lesions Diagnostics: [] Therapeutics: [] MDM: Impression: [] Plan: [] Definitive disposition and diagnosis as appropriate pending reevaluation and review of above. 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: Musculoskeletal History: Reports: None Neurological History: Reports: None Psychiatric History: Reports: Anxiety, PTSD Endocrine/Metabolic History: Reports: None Insulin Pump Model and Drapery Operator: N/A Hematologic History: Reports: None Immunologic History: Reports: None Oncologic (Cancer) History: Reports: None Dermatologic History: Reports: None - Infectious Disease History Infectious Disease History: Reports: Chicken Pox - Past Surgical History Head Surgeries/Procedures: Reports: None Female Surgical History: Reports: Section Social & Family History - Family History Family Medical History: Noncontributory - Tobacco Use Smoking Status *Q: Never Smoker - Caffeine Use Caffeine Use: Reports: None - Recreational Drug Use Recreational Drug Use: No ED ROS ENT - Review of Systems Review Of Systems: See Below (See HPI) ED EXAM, ENT - Physical Exam Exam: See Below (See HPI) Course - Vital Signs Text/Narrative:: Exam consistent with otitis externa. No swimming history but the patient does report she takes frequent baths. Will send Cortisporin prescription electronically to her pharmacy. Last Recorded V/S: Last Vital Signs Temp 96.5 F L 08/31/19 15:08 Pulse 81 08/31/19 15:08 Resp 18 08/31/19 15:08 BP 115/82 08/31/19 15:08 Pulse Ox 97 08/31/19 15:08 Departure - Departure Time of Disposition: 16:13 Disposition: Home, Self-Care 01 Clinical Impression: Otitis externa Qualifiers: Chronicity: acute Laterality: right - Discharge Information Instructions: Ear Drops, Adult, [id number], Otitis Externa, [id number] Referrals: Alexander Juarez MD [Primary Care Provider] - 2 Days Forms: ED Department Discharge Additional Instructions: The following information is given to patients seen in the emergency department who are being discharged to home. This information is to outline your options for follow-up care. We provide all patients seen in our emergency department with a follow-up referral. The need for follow-up, as well as the timing and circumstances, are variable depending upon the specifics of your emergency department visit. If you don't have a primary care physician on staff, we will provide you with a referral. We always advise you to contact your personal physician following an emergency department visit to inform them of the circumstance of the visit and for follow-up with them and/or the need for any referrals to a consulting specialist. The emergency department will also refer you to a specialist when appropriate. This referral assures that you have the opportunity for follow-up care with a specialist. All of these measure are taken in an effort to provide you with optimal care, which includes your follow-up. Under all circumstances we always encourage you to contact your private physician who remains a resource for coordinating your care. When calling for follow-up care, please make the office aware that this follow-up is from your recent emergency room visit. If for any reason you are refused follow-up, please contact the [facility] Emergency Department at and asked to speak to the emergency department charge nurse. Sepsis Event Note (ED) - Evaluation Sepsis Screening Result: No Definite Risk - Focused Exam Vital Signs: Vital Signs Temp Pulse Resp BP Pulse Ox 08/31/19 15:08 96.5 F L 81 18 115/82 97
== END 2019-08-31 16:32 | disposition home or self-care (01) ==
LOC: MW.ED 13:33
DX: H60.91 Unspecified otitis externa, right ear (principal)
CPT/HCPCS: 99282

== ENCOUNTER 2019-11-06 11:03 | Emergency (ER) | payer MEDICAID, OTHER ==
[2019-11-06] MEDS ORDERED: Albuterol 8 GM Inhaler INH ONE (11:07)
[2019-11-06] MEDS ORDERED: Acetaminophen/HYDROcodone 325-5 MG Tab PO ONE (11:08)
--- NOTE | 2019-11-06 11:08 | EDM.PDOC ---
ED HPI GENERAL MEDICAL PROBLEM - General Chief Complaint: Respiratory Problem Stated Complaint: COUGH Time Seen by Provider: 11/06/19 11:05 - History of Present Illness INITIAL COMMENTS - FREE TEXT/NARRATIVE: 49-year-old female without history of chronic lung disease smokes 2 cigarettes daily presenting with 2 to 3 days of cough malaise body aches and chills woke up this morning short of breath 911 was called. No severe tearing chest pain no back pain no syncope or near syncope. Symptoms constant stable without exacerbating or alleviating factors radiation or other associated symptoms. 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: Musculoskeletal History: Reports: None Neurological History: Reports: None Psychiatric History: Reports: Anxiety, PTSD Endocrine/Metabolic History: Reports: None Insulin Pump Model and Rougher Operator: N/A Hematologic History: Reports: None Immunologic History: Reports: None Oncologic (Cancer) History: Reports: None Dermatologic History: Reports: None - Infectious Disease History Infectious Disease History: Reports: Chicken Pox - Past Surgical History Head Surgeries/Procedures: Reports: None Female Surgical History: Reports: Section Social & Family History - Family History Family Medical History: Noncontributory - Caffeine Use Caffeine Use: Reports: None ED ROS GENERAL - Review of Systems Review Of Systems: See Below Free Text/Narrative/Comment: General: No fever. Skin: No rash. Eyes: No vision problems. ENT: No sore throat. Neck: No neck stiffness. Respiratory: Per HPI Cardiac: No chest pain. Gastrointestinal: No nausea, vomiting or abdominal pain. Urinary: No dysuria. Musculoskeletal: No myalgias/arthralgias. Neurologic: No headache. ED EXAM, GENERAL - Physical Exam Exam: See Below Free Text/Narrative:: General Appearance: No acute distress, appears comfortable Skin: No rash HEENT: Normocephalic/atraumatic, sclera anicteric, mucous membranes moist Neck: Normal range of motion Chest and Lungs: Normal work of breathing but wheezing with cough diffusely Cardiovascular: Regular rate and rhythm, no murmur Abdomen: Soft, non-tender Back: Normal Musculoskeletal: No edema or tenderness Neurologic: Awake, alert, no obvious deficits, moving all extremities Psychiatric: Appropriate, cooperative Course - Vital Signs Last Recorded V/S: Last Vital Signs Temp 96.7 F L 11/06/19 11:05 Pulse 90 11/06/19 11:05 Resp 18 11/06/19 11:05 BP 109/73 11/06/19 11:05 Pulse Ox 96 11/06/19 11:05 - Orders/Labs/Meds Orders: Active Orders 24 hr Category Date Time Status RT Post Treatment Assessment [RC] Click to Edit Care 11/06/19 11:07 Active RT Pre-Treatment Assessment [RC] Click to Edit Care 11/06/19 11:07 Active CORONAVIRUS COVID-19 PCR PHL Stat Lab 11/06/19 11:30 Received Labs: Laboratory Tests 11/06/19 Range/Units 11:30 SARS CoV-2 RNA Rapid USAMA NEGATIVE (NEGATIVE) Meds: Medications Discontinued Medications Generic Name Dose Route Start Last Admin Trade Name Freq PRN Reason Stop Dose Admin Hydrocodone Bitart/Acetaminophen 1 tab 11/06/19 11:08 11/06/19 11:33 [place] 325-5 Mg PO 11/06/19 11:09 1 tab ONETIME ONE Administration Albuterol 2 gm 11/06/19 11:07 11/06/19 11:37 Ventolin Hfa INH 11/06/19 11:08 Not Given ONETIME ONE Albuterol Confirm 11/06/19 11:23 11/06/19 11:37 Ventolin Hfa Administered 11/06/19 11:24 18 g Dose Administration 18 gm .ROUTE .STK-MED ONE Departure - Departure Time of Disposition: 12:48 Disposition: Home, Self-Care 01 Condition: Good Clinical Impression: Viral bronchitis - Discharge Information *PRESCRIPTION DRUG MONITORING PROGRAM REVIEWED*: Not Applicable *COPY OF PRESCRIPTION DRUG MONITORING REPORT IN PATIENT LADONNA: Not Applicable Prescriptions: predniSONE 40 mg PO WITHBREAKFAST 5 Days #5 tab Instructions: Acute Bronchitis, Adult, [id number] Referrals: Alexander Juarez MD [Primary Care Provider] - 1 Week Forms: ED Department Discharge Additional Instructions: Please take 2 puffs from the inhaler every 4-6 hours while you are awake. Please be sure to take the prednisone each morning with breakfast for the next 5 days. 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 If you feel extremely short of breath at home, feel like you cannot catch your breath, develop severe chest pain or any other new symptoms that concern you please return to the emergency room. The following information is given to patients seen in the emergency department who are being discharged to home. This information is to outline your options for follow-up care. We provide all patients seen in our emergency department with a follow-up referral. The need for follow-up, as well as the timing and circumstances, are variable depending upon the specifics of your emergency department visit. If you don't have a primary care physician on staff, we will provide you with a referral. We always advise you to contact your personal physician following an emergency department visit to inform them of the circumstance of the visit and for follow-up with them and/or the need for any referrals to a consulting specialist. The emergency department will also refer you to a specialist when appropriate. This referral assures that you have the opportunity for follow-up care with a specialist. All of these measure are taken in an effort to provide you with optimal care, which includes your follow-up. Under all circumstances we always encourage you to contact your private physician who remains a resource for coordinating your care. When calling for follow-up care, please make the office aware that this follow-up is from your recent emergency room visit. If for any reason you are refused follow-up, please contact the [facility] Emergency Department at and asked to speak to the emergency department charge nurse. Sepsis Event Note (ED) - Focused Exam Vital Signs: Vital Signs Temp Pulse Resp BP Pulse Ox 11/06/19 11:05 96.7 F L 90 18 109/73 96 - My Orders Last 24 Hours: My Active Orders 11/06/19 11:07 RT Post Treatment Assessment [RC] Click to Edit RT Pre-Treatment Assessment [RC] Click to Edit 11/06/19 11:30 CORONAVIRUS COVID-19 PCR PHL Stat - Assessment/Plan Last 24 Hours: My Active Orders 11/06/19 11:07 RT Post Treatment Assessment [RC] Click to Edit RT Pre-Treatment Assessment [RC] Click to Edit 11/06/19 11:30 CORONAVIRUS COVID-19 PCR PHL Stat Assessment:: 49-year-old female presenting with cough chills malaise concern for COVID concern for bronchitis concern for pneumonia no findings that would suggest ACS no findings that would suggest pulmonary embolism or aortic dissection patient without signs of sepsis. Chest x-ray COVID swab and albuterol MDI ordered single dose [place] as cough suppressant. COVID is negative chest x-ray without pneumonia patient's vital signs remain good discharged with prednisone burst albuterol inhaler return precautions discussed and understood.
[2019-11-06] MEDS ORDERED: Albuterol HFA 18 Gm Inhaler ONE (11:23)
--- NOTE | 2019-11-06 12:21 | CR ---
Chest: AP view of the chest was obtained. Comparison: Prior chest x-ray of 03/29/19. Heart size and mediastinum are normal. Lungs are clear with no acute parenchymal change. Bony structures are grossly intact. Impression: 1. Nothing acute is seen on frontal chest x-ray. Diagnostic code #1 This report was dictated in MDT
== END 2019-11-06 12:55 | disposition home or self-care (01) ==
LOC: MW.ED 11:03
DX: J20.8 Acute bronchitis due to other specified organisms (principal); Z98.890 Other specified postprocedural states; Z20.828 Contact with and (suspected) exposure to other viral communicable diseases
CPT/HCPCS: 71045; 87635; 99285; A9270; 99283; J3535-GY; U0002

== ENCOUNTER 2021-11-13 16:24 | Emergency (ER) | payer MEDICAID, OTHER ==
[2021-11-13] MEDS ORDERED: Ketorolac 60 MG/2 ML SDV IM ONE (17:58)
== END 2021-11-13 18:22 | disposition home or self-care (01) ==
LOC: MW.ED 16:24
DX: S13.4XXA Sprain of ligaments of cervical spine, initial encounter (principal); V49.40XA Driver injured in collision with unspecified motor vehicles in traffic accident, initial encounter; Y92.410 Unspecified street and highway as the place of occurrence of the external cause
CPT/HCPCS: 70450; 72125; 96372; 99283; J1885